=== PATIENT | male | born 1985 | race Caucasian/White ===

== ENCOUNTER → 2022-01-11 | Outpatient (CLI) | payer BC ==
--- NOTE | 2022-01-11 10:42 | P.STRESS ---
- Stress Test Note Stress Test Results/Findings: Exam Performed: stress echo exercise Exam Date: 01/11/22 Reason for Exam: chest pain Height: 6 ft Weight: 92.986 kg Protocol: pilo Stage: IV Duration of Exercise: 12 min Resting Heart Rate: 67 Resting Blood Pressure: 109/55 Maximum Achieved Heart Rate: 166 Maximum Achieved Blood Pressure: 239/73 85% PMHR: 158 100% PMHR: 186 METS: 11.1 Technologist Comment: Stress Test Results/Findings: This is a 36-year-old gentleman being evaluated for symptoms of chest pain. Patient has hypercholesteremia and family history of ischemic heart disease. Stress data: Baseline EKG showed sinus rhythm with normal RI interval and QRS duration. Blood pressure at rest is on 9/55, pulse rate of 67. Patient walked on the Pilo protocol for 12 minutes achieving a maximum rate of 166 with a blood pressure of 239/73. EKGs taken during and after exercise did not reveal any significant changes from the baseline. Echo data: Baseline echo images show normal wall motion and thickening. Exercise echo images showed augmentation of the wall motion and thickening in all the segments. Final impression: #1. Negative stress test #2. Negative stress echo
== END | disposition home or self-care (01) ==
LOC: RADNMMAIN 08:59
PROVIDERS: ATTEND Family Medicine
DX: R07.89 Other chest pain (principal)
CPT/HCPCS: 93351

== ENCOUNTER 2022-01-18 09:34 | Day surgery (SDC) | payer BC ==
[2022-01-18 10:44] VITALS: TEMP 97.3
[2022-01-18] MEDS ORDERED: LIDOCAINE 1% (10MG/ML) FOR IV START INTRADERMA PRN (10:45)
[2022-01-18] MEDS ORDERED: LACTATED RINGERS 1,000 ML IV SCH (10:45)
[2022-01-18] MEDS ORDERED: PROPOFOL 10 MG/ML 20 ML VIAL IV ONE (11:13)
--- NOTE | 2022-01-18 11:30 | P.PCN ---
Date of Procedure: 01/18/22 Procedure(s) Performed: BRIEF HISTORY: Patient is a 36-year-old pleasant white male scheduled for an elective colonoscopy as a part of screening for colon cancer and family history of colon cancer. His father was diagnosed with colon cancer at age 50 PROCEDURE PERFORMED: Colonoscopy. PREOPERATIVE DIAGNOSIS: Screening for colon cancer/family history of colon cancer. IV sedation per Anesthesia. PROCEDURE: After informed consent was obtained, the patient, was brought into the endoscopy unit. IV sedation was administered by Anesthesia under continuous monitoring. Digital rectal examination was normal. Initially the Olympus CF-160 flexible video colonoscope was then inserted in the rectum, gradually advanced into the cecum without any difficulty. Careful examination was performed as the scope was gradually being withdrawn. Ileocecal valve and the appendiceal orifice were visualized and appeared normal. Prep was excellent. Mucosa of the cecum, ascending colon, transverse colon, descending colon, sigmoid colon, and rectum appeared normal. Retroflexion was performed in the rectum and no lesions were seen. The patient tolerated the procedure well. IMPRESSION: Normal-appearing colon from rectum to cecum with no evidence of colorectal neoplasia . RECOMMENDATIONS: Findings of this examination were discussed with the patient as well as his family. He was advised to have a repeat screening colonoscopy in 5 years from now..
[2022-01-18 11:52] VITALS: BP 110/61; PULSE 78; RESP 18
== END 2022-01-18 12:14 | disposition home or self-care (01) ==
LOC: ORWHC2ENDO 09:34
PROVIDERS: ATTEND Internal Medicine Gastroenterology
DX: Z12.11 Encounter for screening for malignant neoplasm of colon (principal); Z80.0 Family history of malignant neoplasm of digestive organs
CPT/HCPCS: J2704; G0105; 45378